=== PATIENT | male | born 1980 | race Caucasian/White ===

== ENCOUNTER 2019-07-12 08:39 | Emergency (ER) | payer SELFPAY ==
[2019-07-12 08:47] VITALS: BP 135/75
[2019-07-12] MEDS ORDERED: DEXAMETHASONE SOD PHOS INJ 10 MG/1 ML VIAL IM ONE (09:08)
--- NOTE | 2019-07-12 09:09 | ER Document Report ---
HPI - HPI Time Seen by Provider: 07/12/19 08:55 Context: Patient is a 38-year-old male who presents to the emergency department with a chief complaint of back pain. About a week ago he started to have back pain at his right lower back. 2 days ago he felt a pop in his back. He states that it hurts to lay down, sit up and he continues to have pain. Patient states that he has taken ibuprofen to help with his pain, but has had little relief. Last dose of ibuprofen was at 5:00 this morning. He took 800 mg. Denies any past medical history. Does not take any other medications on a regular basis. - CONSTITUTIONAL Constitutional: DENIES: Fever, Chills - EENT EENT: DENIES: Sore Throat, Ear Pain, Eye problems - NEURO Neurology: DENIES: Headache, Weakness, Vision blurred, Dizzinesss / Vertigo - CARDIOVASCULAR Cardiovascular: DENIES: Chest pain - RESPIRATORY Respiratory: DENIES: Trouble Breathing, Coughing - GASTROINTESTINAL Gastrointestinal: DENIES: Abdominal Pain, Nausea, Patient vomiting - URINARY Urinary: DENIES: Dysuria, Urgency, Frequency - MUSCULOSKELETAL Musculoskeletal: REPORTS: Back Pain - right lower. DENIES: Extremity pain, Neck Pain, Swelling - DERM Skin Color: Normal Skin Problems: None Past Medical History - General Information source: Patient - Social History Smoking Status: Current Every Day Smoker Family History: Reviewed & Not Pertinent Vertical Provider Document - CONSTITUTIONAL Agree With Documented VS: Yes Exam Limitations: No Limitations General Appearance: No Apparent Distress - HEENT HEENT: Atraumatic, Normocephalic, PERRLA - NECK Neck: Normal Inspection - RESPIRATORY Respiratory: Breath Sounds Normal, No Respiratory Distress - CARDIOVASCULAR Cardiovascular: Regular Rate, Regular Rhythm Pulses: Normal: Radial - MUSCULOSKELETAL/EXTREMETIES Musculoskeletal/Extremeties: FROM, Tender - Right lower back, No Edema - NEURO Level of Consciousness: Awake, Alert, Appropriate Motor/Sensory: No Motor Deficit, No Sensory Deficit - DERM Integumentary: Warm, Dry Course - Re-evaluation Re-evalutation: 07/12/19 09:06 Differential diagnosis for back pain includes muscle spasm, muscle strain, slipped disc cauda equina syndrome, vertebral fracture, vertebral tumor, epidural abscess, pyelonephritis, or AAA. Based on history and exam, the most likely etiology of the patient's back pain is musculoskeletal nature. Emergent MRI is not indicated at this time because the patient does not have new weakness, or cauda equina syndrome. Patient does not have bladder or bowel dysfunction. Patient does not have history of IV drug use, therefore, I do not suspect an epidural abscess. Patient does not have recent weight loss or night sweats, and does not have a known history of cancer. Patient will receive a dose of Decadron here in the emergency department. I will send him home with naproxen. Follow-up precautions were given. Verbal d ischarge instructions were given to the patient. They verbalized understanding. They are stable for discharge. - Vital Signs Vital signs: Temp Pulse Resp BP Pulse Ox 98.2 F 76 16 135/75 H 100 07/12/19 08:45 07/12/19 08:45 07/12/19 08:45 07/12/19 08:45 07/12/19 08:45 Discharge - Discharge Clinical Impression: Lumbago Qualifiers: Chronicity: acute Back pain laterality: right Sciatica presence: without sciatica Qualified Code(s): M54.5 - Low back pain Condition: Stable Disposition: HOME, SELF-CARE Instructions: Ice Packs ([facility]), Low Back Pain ([facility]), Muscle Strain ([facility]), Warm Packs ([facility]) Additional Instructions: You have been seen in the Emergency Department (ED) today for back pain. Your workup and exam have not shown any acute abnormalities and you are likely suffering from muscle strain or possible problems with your discs, but there is no treatment that will fix your symptoms at this time. Please take the naproxen that has been prescribed as directed. You should also purchase a local lidocaine cream such as "aspercreme with lidocaine" and use per bottle instructions to the affected area. Apply heat to the area as often as you are able. Continue to keep active and avoid prolonged periods of bed rest. Please follow up with your doctor as soon as possible regarding today's ED visit and your back pain. Return to the ED for worsening back pain, fever, weakness or numbness of either leg, or if you develop either (1) an inability to urinate or have bowel movements, or (2) loss of your ability to control your bathroom functions (if you start having "accidents"), or if you develop other new symptoms that concern you.concern you. Prescriptions: Naproxen 500 mg PO BID #60 tablet Referrals: [facility] [Provider Group] - Follow up as needed [facility] [Provider Group] - Follow up as needed
== END 2019-07-12 09:22 | disposition home or self-care (01) ==
LOC: ER 08:39
DX: M54.5 Low back pain (principal); F17.200 Nicotine dependence, unspecified, uncomplicated
CPT/HCPCS: 96372; 99283; J1100

== ENCOUNTER 2019-08-15 16:03 | Inpatient (IN) | payer SELFPAY ==
--- NOTE | 2019-08-15 17:32 | ER Document Report ---
ED Psych Disorder / Suicide - General Chief Complaint: Suicidal Ideation Stated Complaint: POSSIBLE OVERDOSE Time Seen by Provider: 08/15/19 16:42 Notes: Patient is a 38-year-old male who presents the emergency department with a chief complaint of suicidal ideation. Patient states that he wants to kill himself. He attempted to take 80 mg of Imodium around 1230 this afternoon. Patient states that he has a history of heroin abuse and he has been on Imodium to help with withdrawals. He admits to using heroin about 6 months ago. Patient has history of chronic back pain. States he had a bowel movement yesterday and it was normal. Denies any abdominal pain, chest pain, respiratory distress, or any other symptoms. Patient denies homicidal ideation. TRAVEL OUTSIDE OF THE [place] IN LAST 30 DAYS: No - Related Data Allergies/Adverse Reactions: Penicillins Allergy (Verified 07/12/19 09:05) Home Medications: Immodium. Ibuprofen Past Medical History - General Information source: Patient - Social History Smoking Status: Current Every Day Smoker Chew tobacco use (# tins/day): No Frequency of alcohol use: None Drug Abuse: Cocaine, Heroin, Marijuana Family History: Reviewed & Not Pertinent Patient has suicidal ideation: Yes Patient has homicidal ideation: No Review of Systems - Review of Systems Notes: REVIEW OF SYSTEMS: CONSTITUTIONAL : Denies recent illness. Denies recent unintentional weight loss. Denies fever, chills, or sweats. EENT: Denies eye, ear, throat, or mouth pain, discharge, or symptoms. Denies nasal or sinus congestion. CARDIOVASCULAR: Denies chest pain. RESPIRATORY: Denies shortness of breath, cough, congestion, difficulty breathing, or wheezing. GASTROINTESTINAL: Denies nausea, vomiting, and diarrhea. Denies abdominal pain. Denies constipation. GENITOURINARY: Denies difficulty urinating, burning, blood in urine, urgency or frequency. MUSCULOSKELETAL: Denies neck and back pain. Denies joint pain or swelling. SKIN: Denies rash, itchiness, or lesions HEMATOLOGIC : Denies easy bruising or bleeding. LYMPHATIC: Denies swollen, painful, enlarged glands. NEUROLOGICAL: Denies no numbness or tingling denies weakness. Denies headache. Denies altered mental status. Denies alteration in speech. PSYCHIATRIC: See HPI. All other systems reviewed and negative. Physical Exam - Vital signs Vitals: Temp Pulse Resp BP Pulse Ox 98.2 F 66 20 145/96 H 96 08/15/19 16:31 08/15/19 16:31 08/15/19 16:31 08/15/19 16:31 08/15/19 16:31 - Notes Notes: PHYSICAL EXAMINATION: GENERAL: Appears well, healthy, well-nourished, no acute distress. HEAD: Normocephalic, atraumatic. EYES: PERRL, conjunctiva normal, all extraocular movements intact, sclera nonicteric ENT: Moist mucous membranes. NECK: Supple, no noticeable swelling, redness, rash. Normal range of motion. LUNGS: Equal breath sounds bilaterally and clear to auscultation. No wheezes rales or rhonchi. CARDIOVASCULAR: S1-S2, regular rate, regular rhythm. Radial pulses 2+, normal. ABDOMEN: Normoactive bowel sounds. Soft, nontender, no guarding, no rebound tenderness, and no masses palpated. EXTREMITIES: Normal strength and range of motion, no pitting or edema. No cy anosis. NEUROLOGICAL: Moves all extremities upon command. Strength 5/5 in all extremities. PSYCH: Tearful, sad. SKIN: Warm, dry. No rash, lesions, ulcerations noted. Normal skin turgor. Course - Re-evaluation Re-evalutation: 08/15/19 17:02 Primary nurse called poison control and poison control is recommending basic labs along with a magnesium level. They also recommend ICU admission. 08/15/19 18:01 Patient's hematology is unremarkable. Chemistries are also unremarkable. Liver enzymes are normal. Urinalysis is normal. I spoke with Dr. Carrillo, the lunch wagon operator. Patient will be admitted to the ICU for cardiac monitoring and monitoring for respiratory depression. 08/15/19 18:55 Toxicology shows barbiturates, cocaine, and marijuana. - Vital Signs Vital signs: Temp Pulse Resp BP Pulse Ox 98.2 F 66 12 138/90 H 97 08/15/19 16:31 08/15/19 16:31 08/15/19 18:02 08/15/19 18:02 08/15/19 18:02 - Laboratory Result Diagrams: 08/15/19 16:50 08/15/19 16:50 Laboratory results interpreted by me: 08/15/19 16:50 RBC 5.73 H - EKG Interpretation by Me Additional EKG results interpreted by me: 08/15/19 18:01 Sinus rhythm. Rate 60. WI 184; QRS 92; QT 428; QTc 428. No ST elevations or depressions noted. Discharge - Discharge Clinical Impression: Suicidal ideation Overdose Qualifiers: Encounter type: initial encounter Injury intent: intentional self-harm Qualified Code(s): T50.902A - Poisoning by unspecified drugs, medicaments and biological substances, intentional self-harm, initial encounter Condition: Stable Disposition: ADMITTED INPATIENT Admitting Provider: Gerardo (Taper/Finisher) Unit Admitted: ICU
[2019-08-15 17:36] LABS: ABSOLUTE EOSINOPHILS # (AUTO) 0.1 10^3/uL (0.0-0.6); ABSOLUTE LYMPHOCYTES (AUTO) 2.6 10^3/uL (0.5-4.7); ABSOLUTE MONOCYTES (AUTO) 0.6 10^3/uL (0.1-1.4); ABSOLUTE NEUT (AUTO) 6.5 10^3/uL (1.7-8.2); BASOPHILS % (AUTO) 0.4 % (0-2); EOSINOPHILS % (AUTO) 0.8 % (0-6); HEMATOCRIT 48.2 % (37.9-51.0); HEMOGLOBIN 16.2 g/dL (13.5-17.0); LYMPHOCYTES % (AUTO) 26.8 % (13-45); MEAN CORPUSCULAR HEMOGLOBIN 28.3 pg (27.0-33.4); MEAN CORPUSCULAR HGB CONC 33.7 g/dL (32.0-36.0); MEAN CORPUSCULAR VOLUME 84 fl (80-97); MONOCYTES % (AUTO) 6.1 % (3-13); PLATELET COUNT 229 10^3/uL (150-450); RED BLOOD COUNT 5.73 10^6/uL (4.35-5.55); SEGMENTED NEUTROPHILS % (AUTO) 65.9 % (42-78); TOTAL CELLS COUNTED % (AUTO) 100 %; WHITE BLOOD COUNT 9.9 10^3/uL (4.0-10.5)
[2019-08-15 17:43] LABS: APPEARANCE,URINE CLEAR; BILIRUBIN,URINE NEGATIVE (NEGATIVE); COLOR,URINE YELLOW; GLUCOSE, URINE NEGATIVE (NEGATIVE); KETONES,URINE NEGATIVE (NEGATIVE); LEUKOCYTE ESTERASE,URINE NEGATIVE (NEGATIVE); NITRITE,URINE NEGATIVE (NEGATIVE); PROTEIN,URINE NEGATIVE (NEGATIVE); URINE SPECIFIC GRAVITY 1.006; UROBILINOGEN,URINE NEGATIVE mg/dL (<2.0)
[2019-08-15 17:56] LABS: ALBUMIN 4.6 g/dL (3.5-5.0); ALKALINE PHOSPHATASE 78 U/L (38-126); ANION GAP 9 (5-19); ASPARTATE AMINO TRANSFERASE 19 U/L (17-59); BILIRUBIN,DIRECT 0.2 mg/dL (0.0-0.4); BILIRUBIN,TOTAL 0.6 mg/dL (0.2-1.3); BLOOD UREA NITROGEN 7 mg/dL (7-20); CALCIUM 9.7 mg/dL (8.4-10.2); CARBON DIOXIDE 29 mmol/L (22-30); CHLORIDE 102 mmol/L (98-107); GLUCOSE 84 mg/dL (75-110); POTASSIUM 3.6 mmol/L (3.6-5.0); TOTAL PROTEIN 7.8 g/dL (6.3-8.2)
[2019-08-15 18:03] LABS: URINE AMPHETAMINES SCREEN NEGATIVE; URINE BENZODIAZEPINES SCREEN NEGATIVE; URINE METHADONE SCREEN NEGATIVE; URINE PHENCYCLIDINE SCREEN NEGATIVE
[2019-08-15 18:17] LABS: URINE BARBITURATES SCREEN UNCONFIRMED POSITIVE; URINE COCAINE SCREEN UNCONFIRMED POSITIVE; URINE MARIJUANA (THC) SCREEN UNCONFIRMED POSITIVE
[2019-08-15 21:47] LABS: SALICYLATE 1.1 mg/dL (2.0-20.0)
[2019-08-15 21:58] LABS: ACETAMINOPHEN < 10 ug/mL (10-30); ALCOHOL < 10 mg/dL (NONE DETECTED)
--- NOTE | 2019-08-15 22:29 | EKG REPORT ---
SEVERITY:- ABNORMAL ECG - SINUS RHYTHM CONSIDER ANTEROSEPTAL INFARCT : Confirmed by: Linnea Liu MD 15-Aug-2019 22:29:23
--- NOTE | 2019-08-15 22:29 | EKG REPORT ---
SEVERITY:- ABNORMAL ECG - SINUS RHYTHM PROBABLE LEFT ATRIAL ABNORMALITY CONSIDER ANTEROSEPTAL INFARCT : Confirmed by: Linnea Liu MD 15-Aug-2019 22:29:26
[2019-08-16] MEDS ORDERED: ACETAMINOPHEN 325 MG TABLET PO ONE (03:00)
[2019-08-16 06:02] LABS: ABSOLUTE EOSINOPHILS # (AUTO) 0.1 10^3/uL (0.0-0.6); ABSOLUTE LYMPHOCYTES (AUTO) 2.6 10^3/uL (0.5-4.7); ABSOLUTE MONOCYTES (AUTO) 0.4 10^3/uL (0.1-1.4); ABSOLUTE NEUT (AUTO) 3.1 10^3/uL (1.7-8.2); BASOPHILS % (AUTO) 0.8 % (0-2); EOSINOPHILS % (AUTO) 2.1 % (0-6); HEMATOCRIT 45.4 % (37.9-51.0); HEMOGLOBIN 15.2 g/dL (13.5-17.0); LYMPHOCYTES % (AUTO) 41.9 % (13-45); MEAN CORPUSCULAR HEMOGLOBIN 28.1 pg (27.0-33.4); MEAN CORPUSCULAR HGB CONC 33.5 g/dL (32.0-36.0); MEAN CORPUSCULAR VOLUME 84 fl (80-97); MONOCYTES % (AUTO) 6.7 % (3-13); PLATELET COUNT 214 10^3/uL (150-450); RED BLOOD COUNT 5.41 10^6/uL (4.35-5.55); RED CELL DISTRIBUTION WIDTH 13.8 % (11.5-14.0); SEGMENTED NEUTROPHILS % (AUTO) 48.5 % (42-78); TOTAL CELLS COUNTED % (AUTO) 100 %; WHITE BLOOD COUNT 6.3 10^3/uL (4.0-10.5)
[2019-08-16 06:11] LABS: ALKALINE PHOSPHATASE 58 U/L (38-126); ANION GAP 8 (5-19); ASPARTATE AMINO TRANSFERASE 19 U/L (17-59); BILIRUBIN,DIRECT 0.2 mg/dL (0.0-0.4); BILIRUBIN,TOTAL 0.8 mg/dL (0.2-1.3); BLOOD UREA NITROGEN 10 mg/dL (7-20); CALCIUM 9.5 mg/dL (8.4-10.2); CARBON DIOXIDE 30 mmol/L (22-30); CHLORIDE 101 mmol/L (98-107); GLUCOSE 151 mg/dL (75-110); PHOSPHORUS 4.9 mg/dL (2.5-4.5); TOTAL PROTEIN 6.9 g/dL (6.3-8.2)
--- NOTE | 2019-08-16 08:47 | CRITICAL CARE ADMISSION REPORT ---
HPI Date:: 08/15/19 Reason for ICU Reason:: intentional overdose. suicidal ideation HPI: Mr. Coleman is a pleasant 38yr old M with PMHx of heroin addiction, polysubtance use and depression who was brought in to the ED after he admitted to his brother that he had taken 80mg of Immodum with suicidal intent. Pt states that he started taking immodium to attempt to stop using heroin and when he recently tried to wean himself off the Immodium, he began feeling withdrawal symptoms. He reported that he was initially on 10mg daily and when he weaned to 5mg he had symptoms of withdrawal, so he has been taking 7mg daily. He states that he decided to take 80mg today with the intention of overdose. ED provider states she spoke with poison control with recommendations to admit to ICU for continuous cardiac and respiratory monitoring. Admits to suicidal attempts in the remote past, but nothing recently. Currently denies SI/HI. Reported mild headache that was treated with 650mg Acetaminophen with improvement. - Diagnosis/Plan (1) Overdose Qualifiers: Encounter type: initial encounter Injury intent: intentional self-harm Qualified Code(s): T50.902A - Poisoning by unspecified drugs, medicaments and biological substances, intentional self-harm, initial encounter Is this a current diagnosis for this admission?: Yes (2) Suicidal ideation Is this a current diagnosis for this admission?: Yes (3) Polysubstance (excluding opioids) dependence Is this a current diagnosis for this admission?: Yes - . Plan Summary: Pulm: * continuous pulse ox monitoring - concerns for respiratory depression with immodium OD * supplement O2 as needed - maintain low threshold for intubation if needed * elevate HOB cardiac: * maintain tele monitoring * Q2h vitals * Q4 EKG x6 to monitor QTc and assess for acute changes * Consider echo with history of polysubstance abuse to obtain baseline Neuro: * reported overdose with suicidal intent - suicidal precautions, sitter at bedside, psych consult requested, consider rehab services if accepting * c/o headache that resolved with tylenol * hx of polysubstance abuse with tox screen positive for cocaine, marijuana and barbiuates Renal: * no acute concerns * monitor I&O, trend renal indices, replace lytes PRN GI: * Regular diet * no indication for GI ppx Heme/onc: * no acute concerns * trend hgb/hct - transfuse for hgb <7.0 * lovenox for DVT ppx ID: * WBC and vitals stable - monitor for needed abx Past Medical History Past Medical History: as per HPI Psychiatric Medical History: Reports: Depression - chemical dependency Social/Family History - Social History Smoking Status: Current Every Day Smoker Drugs: Cocaine, Heroin, Marijuana - Medication/Allergies Home Medications: No Home Medications 08/15/19 Allergies/Adverse Reactions: Penicillins Allergy (Verified 07/12/19 09:05) Review of Systems Constitutional: PRESENT: headache(s) Nose, Mouth, and Throat: PRESENT: headache(s) Cardiovascular: ABSENT: chest pain, dyspnea on exertion, palpitations Respiratory: ABSENT: cough Gastrointestinal: ABSENT: abdominal pain, constipation, diarrhea, nausea, vomiting Neurological: ABSENT: confusion, dizziness, numbness, tingling Psychiatric: PRESENT: depression, suicidal ideation. ABSENT: homidical ideation Physical Exam Vital Signs: Temp Pulse Resp BP Pulse Ox 97.8 F 60 11 L 114/75 95 08/16/19 08:00 08/16/19 08:00 08/16/19 08:00 08/16/19 08:00 08/16/19 08:00 Intake & Output 08/15/19 08/16/19 08/17/19 06:59 06:59 06:59 Intake Total 222 Output Total 0 Balance 222 0 Weight 59.8 kg Weight/Height Weight 59.8 kg Height 6 ft General appearance: PRESENT: no acute distress, thin, well-developed, well- nourished Head exam: PRESENT: atraumatic, normocephalic Eye exam: PRESENT: conjunctiva pink, EOMI, PERRLA Ear exam: PRESENT: normal external ear exam Mouth exam: PRESENT: moist Teeth exam: PRESENT: poor dentation Neck exam: ABSENT: tracheal deviation Respiratory exam: PRESENT: clear to auscultation rodrick, unlabored. ABSENT: wheezes Cardiovascular exam: PRESENT: RRR, +S1, +S2 Pulses: PRESENT: +2 pedal pulses bilateral GI/Abdominal exam: PRESENT: normal bowel sounds, soft. ABSENT: distended, tenderness Extremities exam: ABSENT: tenderness Neurological exam: PRESENT: alert, awake, oriented to person, oriented to place, oriented to time, oriented to situation, CN II-XII grossly intact, normal gait Psychiatric exam: PRESENT: appropriate affect, suicidal ideation Skin exam: PRESENT: dry, other - multiple tattoos in various locations Laboratory/Radiographs Laboratory Results: 08/16/19 05:30 08/16/19 05:30 08/15/19 08/15/19 08/15/19 16:50 16:50 16:50 WBC 9.9 RBC 5.73 H Hgb 16.2 Hct 48.2 MCV 84 MCH 28.3 MCHC 33.7 RDW 14.0 Plt Count 229 Seg Neutrophils % 65.9 Sodium 140.4 Potassium 3.6 Chloride 102 Carbon Dioxide 29 Anion Gap 9 BUN 7 Creatinine 0.78 Est GFR ( Amer) > 60 Glucose 84 Calcium 9.7 Phosphorus Magnesium 2.0 Total Bilirubin 0.6 AST 19 Alkaline Phosphatase 78 Total Protein 7.8 Albumin 4.6 Urine Color YELLOW Urine Appearance CLEAR Urine pH 6.0 Ur Specific [place] 1.006 Urine Protein NEGATIVE Urine Glucose (UA) NEGATIVE Urine Ketones NEGATIVE Urine Blood NEGATIVE Urine Nitrite NEGATIVE Ur Leukocyte Esterase NEGATIVE Urine RBC (Auto) 1 08/16/19 08/16/19 05:30 05:30 WBC 6.3 RBC 5.41 Hgb 15.2 Hct 45.4 MCV 84 MCH 28.1 MCHC 33.5 RDW 13.8 Plt Count 214 Seg Neutrophils % 48.5 Sodium 139.3 Potassium 4.0 Chloride 101 Carbon Dioxide 30 Anion Gap 8 BUN 10 Creatinine 0.84 Est GFR ( Amer) > 60 Glucose 151 H Calcium 9.5 Phosphorus 4.9 H Magnesium 2.0 Total Bilirubin 0.8 AST 19 Alkaline Phosphatase 58 Total Protein 6.9 Albumin 4.0 Urine Color Urine Appearance Urine pH Ur Specific [place] Urine Protein Urine Glucose (UA) Urine Ketones Urine Blood Urine Nitrite Ur Leukocyte Esterase Urine RBC (Auto) 08/15/19 15:49 Creatine Kinase 80 Critical Time Critical Time (minutes): 30 -: The care of a critically ill patient is dynamic. This note represents a static moment in the admission process. orders and treatments may be given simulataneously and urgentl, and time is not technical sales representative of the treatment process. This patient requires Critical Care secondary to life threating organ or limb dysfunction. Without the need for Critical Care services, the patient is at r isk for increasid mortality and morbidity.
[2019-08-16] MEDS ORDERED: ENOXAPARIN SODIUM INJ 30 MG/0.3 ML DISP.SYRIN SUBCUT SCH (10:00)
--- NOTE | 2019-08-16 13:59 | Progress Note ---
Provider Note Provider Note: I personally saw and evaluated the patient in the ICU after he was admitted by Rachelle Juarez NP I reviewed the case care plan and exam findings and I am in agreement In addition to above I saw the patient because of the concern for electro physiologic changes of the heart based on the Imodium he took. In discussion with me he did not take as much as had been originally reported and has been on it chronically to suppress his heroin addiction tendencies. He denies any seizure history, he has no bloating, no abdominal discomfort, no constipation, no shortness of breath and no chest pain. Since his initial evaluation the emergency room he has had no hemodynamic instability. All EKGs have shown a normal QTC and normal QRS. He has exhibited no signs of withdrawal. His lungs are clear heart regular rate and rhythm abdomen is soft and nontender. Labs are normal. He does admit that he wanted to attempt to harm himself in a suicide attempt. He now feels that this was the wrong choice. Has had multiple episodes of suicide attempts. Patient was admitted to the ICU because of the concern for electrophysiologic changes related to loperamide. Given his non-labile status I have cleared him for transfer to psychiatry. He has using cocaine recently and other multiple substances. Withdrawal from these substances will also need to be considered. Please see the H&P by Rachelle Juarez for further details. Total time spent in evaluation of safety, electro physiologic monitoring and EKG monitoring in addition to multidisciplinary rounds, 38 minutes
--- NOTE | 2019-08-16 14:32 | EKG REPORT ---
SEVERITY:- NORMAL ECG - SINUS BRADYCARDIA : Confirmed by: Linnea Liu MD 16-Aug-2019 14:31:34
--- NOTE | 2019-08-16 14:32 | EKG REPORT ---
SEVERITY:- NORMAL ECG - SINUS RHYTHM CONSIDER ANTEROSEPTAL INFARCT : Confirmed by: Linnea Liu MD 16-Aug-2019 14:31:23
--- NOTE | 2019-08-16 14:33 | EKG REPORT ---
SEVERITY:- OTHERWISE NORMAL ECG - SINUS RHYTHM BORDERLINE RIGHT AXIS DEVIATION : Confirmed by: Linnea Liu MD 16-Aug-2019 14:31:53
--- NOTE | 2019-08-16 16:41 | PSYCHOLOGICAL NOTE ---
Psych Note - Psych Note Date seen by psych provider: 08/16/19 Time seen by psych provider: 14:45 Psych Note: Reason for consult: SI & OD Patient states a history of senior care opiate abuse. Patient states he has received treatment at 12 rehabs and a couple of detoxes. Patient reports injection of 30-40 Imodium pills with the intent to commit suicide. Patient reports a history of Imodium use to not withdraw after opioid use. Patient stated he was glad his suicide attempt was not completed, however patient verbalized some indifference with being alive. Patient states he informed his a week ago about his plans to commit suicide. Patient states he waited so he could enjoy 5 awesome days with my kids. Patient expressed a desire to go inpatient. When asked what would make this time different than the prior 12 rehabs and couple of detoxes, patient responded, I dont know. Patient has not engaged in outpatient mental health services for therapy and medication management. Patient was agreeable to medication management and outpatient therapy services. Patient reports the only significant mental health history is his grandmothers sister had a Bipolar Depression diagnosis. Patient is alert and oriented to person, place, time and circumstance. Mood eurythmic with congruent affect as observed by laughing, smiling, and engaging with clinician. Patient currently endorses passive suicidal ideation. Patient denies homicidal ideation. Delusions are absent and behavior is congruent with an intact reality based presentation (i.e. organized and linear thought processes). Patient denies auditory and visual hallucinations. There is no observed behavior that suggests patient is responding to internal stimuli. Eye contact is good. Conversational speech is within normal rate, tone, and prosody. Intellectual ability appears to be within average range. Attention and concentration are good. Insight, judgment, and impulse control are poor. DSM Diagnosis: Substance Use Disorder, Severe Possible Cluster B Traits Medication recommendations per [facility] contracted psychiatrist Dr. Izabel LOBATO is as follows: None Impression/Plan: Patient is cleared from acute psychiatric services. Patient does not meet IVC criteria per [place] GS 122C. Medication recommendations have been provided. Patient currently endorses passive suicidal ideation. Patient denies homicidal ideation. Patient denies auditory and visual hallucinations. There is no observed behavior that suggests patient is responding to internal stimuli. Plan is for patient to voluntarily follow up at [facility] for further treatment. Dr. Gonsales was consulted on the care and management of this patient; attending physician is in agreement with recommendations and disposition.
[2019-08-16] MEDS ORDERED: NICOTINE 21 MG/24 HR PATCH.TD24 TD PRN (19:30)
[2019-08-17 04:22] LABS: ABSOLUTE EOSINOPHILS # (AUTO) 0.1 10^3/uL (0.0-0.6); ABSOLUTE LYMPHOCYTES (AUTO) 2.7 10^3/uL (0.5-4.7); ABSOLUTE MONOCYTES (AUTO) 0.4 10^3/uL (0.1-1.4); ABSOLUTE NEUT (AUTO) 3.3 10^3/uL (1.7-8.2); BASOPHILS % (AUTO) 0.5 % (0-2); EOSINOPHILS % (AUTO) 1.7 % (0-6); HEMATOCRIT 45.8 % (37.9-51.0); HEMOGLOBIN 15.3 g/dL (13.5-17.0); LYMPHOCYTES % (AUTO) 41.3 % (13-45); MEAN CORPUSCULAR HGB CONC 33.5 g/dL (32.0-36.0); MEAN CORPUSCULAR VOLUME 84 fl (80-97); MONOCYTES % (AUTO) 6.4 % (3-13); PLATELET COUNT 220 10^3/uL (150-450); RED BLOOD COUNT 5.47 10^6/uL (4.35-5.55); RED CELL DISTRIBUTION WIDTH 13.8 % (11.5-14.0); SEGMENTED NEUTROPHILS % (AUTO) 50.1 % (42-78); TOTAL CELLS COUNTED % (AUTO) 100 %; WHITE BLOOD COUNT 6.6 10^3/uL (4.0-10.5)
[2019-08-17 04:35] LABS: ANION GAP 6 (5-19); BLOOD UREA NITROGEN 12 mg/dL (7-20); CALCIUM 9.1 mg/dL (8.4-10.2); CARBON DIOXIDE 31 mmol/L (22-30); CHLORIDE 103 mmol/L (98-107); GLUCOSE 83 mg/dL (75-110); PHOSPHORUS 4.8 mg/dL (2.5-4.5); POTASSIUM 4.2 mmol/L (3.6-5.0)
[2019-08-17] MEDS ORDERED: INFLUENZA QUAD (6MOS+) 2019-20 VAC 0.5 ML SYR IM ONE (08:49)
[2019-08-17] MEDS ORDERED: ENOXAPARIN SODIUM INJ 40 MG/0.4 ML DISP.SYRIN SUBCUT SCH (10:00)
--- NOTE | 2019-08-17 11:22 | PDOC CRITICAL CARE PROG REPORT ---
General Date:: 08/17/19 ICU Day:: 2 Ventilator Day:: 0 Hospital Day:: 2 Events in the past 12 to 24 Hours:: The patient was seen and evaluated by psychiatry and cleared without need for involuntary committal. He has remained hemodynamically stable and psychiatrically non-labile. Sarted on nicotine patch yesterday Review of systems relevant to events:: No chest pain, shortness of breath, visual hallucinations, no aggressive behavior. No abdominal pain, bloating. Has had no bowel movement. Does feel some mild withdraw but not significant Reason for ICU Addmission:: intentional overdose. suicidal ideation - Medications: Medications reviewed and adjusted accordingly: Yes Physical Exam Vital Signs: Temp Pulse Resp BP Pulse Ox 98.2 F 59 L 19 108/72 95 08/17/19 06:00 08/16/19 20:00 08/17/19 06:32 08/17/19 06:32 08/17/19 06:32 Intake & Output 08/16/19 08/17/19 08/18/19 06:59 06:59 06:59 Intake Total 222 Output Total 700 Balance 222 -700 Weight 59.8 kg 60 kg Weight/Height Weight 60 kg Height 6 ft General appearance: PRESENT: no acute distress, cooperative, well-developed, well-nourished Exam: Pleasant, nontoxic young appearing 38-year-old male no acute distress awake alert oriented x3 Head exam: PRESENT: atraumatic, normocephalic Eye exam: PRESENT: conjunctiva pink, EOMI, PERRLA. ABSENT: conjunctival injection, scleral icterus Ear exam: PRESENT: normal external ear exam Mouth exam: PRESENT: moist, neck supple Teeth exam: PRESENT: poor dentation Throat exam: ABSENT: post pharyngeal erythema, tonsillar erythema, tonsillar exudate, tonsillogmegaly Neck exam: ABSENT: carotid bruit, JVD, lymphadenopathy, thyromegaly Respiratory exam: PRESENT: clear to auscultation rodrick, unlabored. ABSENT: accessory muscle use, rales, rhonchi, tachypnea, wheezes Cardiovascular exam: PRESENT: RRR, +S1, +S2. ABSENT: tachycardia Pulses: PRESENT: normal dorsalis pedis pul GI/Abdominal exam: PRESENT: normal bowel sounds, soft. ABSENT: ascites, distended, firm, guarding, mass, organolmegaly, rebound, rigid, tenderness Rectal exam: PRESENT: deferred Extremities exam: ABSENT: pedal edema, tenderness Musculoskeletal exam: PRESENT: normal inspection. ABSENT: deformity, dislocation Neurological exam: PRESENT: alert, awake, oriented to person, oriented to place, oriented to time, oriented to situation, CN II-XII grossly intact, other - No tremor. ABSENT: motor sensory deficit, aphasic Psychiatric exam: PRESENT: appropriate affect, normal mood. ABSENT: agitated, homicidal ideation, suicidal ideation Focused psych exam: ABSENT: pressured speech, psychomotor agitation, restlessness Skin exam: PRESENT: dry, intact, warm. ABSENT: cyanosis, mottled, rash Tubes/Lines: ABSENT: Endotracheal Tube, Chest Tube, Central Line, Arterial Catheter, Dialysis catheter, Peg Tube, Nasogastic Tube, Other Laboratory/Radiographs Laboratory Results: 08/17/19 03:54 08/17/19 03:54 08/17/19 08/17/19 03:54 03:54 WBC 6.6 RBC 5.47 Hgb 15.3 Hct 45.8 MCV 84 MCH 28.0 MCHC 33.5 RDW 13.8 Plt Count 220 Seg Neutrophils % 50.1 Sodium 140.1 Potassium 4.2 Chloride 103 Carbon Dioxide 31 H Anion Gap 6 BUN 12 Creatinine 0.84 Est GFR ( Amer) > 60 Glucose 83 Calcium 9.1 Phosphorus 4.8 H Magnesium 2.1 08/15/19 15:49 Creatine Kinase 80 EKG: QTC acceptable at 420 ms, QRS @ 76 All labs, radiographs, diagnostic studies and EKGs were personally reviewed: Yes In addition, reports of radiographic and diagnostic studies were read: Yes Assessment and Plan - Diagnosis (1) Drug overdose, intentional Is this a current diagnosis for this admission?: Yes (2) Suicide attempt by drug overdose Is this a current diagnosis for this admission?: Yes (3) Suicide attempt by drug overdose Is this a current diagnosis for this admission?: Yes (4) Polysubstance (including opioids) dependence w/o physiol dependence Is this a current diagnosis for this admission?: Yes (5) Cocaine abuse Is this a current diagnosis for this admission?: Yes (6) Tobacco abuse Is this a current diagnosis for this admission?: Yes (7) Tobacco abuse counseling Is this a current diagnosis for this admission?: Yes Plan Summary: Patient's QTC on EKG today shows no changes and acceptable He denies suicidal intent today. He agrees to outpatient rehabilitation Laboratory results showed no significant abnormalities Patient has had no hemodynamic or electrophysiologic instability He is stable for discharge to inpatient rehabilitation at [facility]. Critical Time Critical Time (minutes): 0 - [id number] Level of Care: MEDICAL Anticipated discharge: Other - [facility] inpatient rehab Within: Other - Today -: 1. The care of a critical patient is a dynamic process. This note is a outside energy [employer] synopsis but static in nature. The timeframe for treatments given in order is not necessary the actual time these treatments may have been done. 2. This patient required critical care secondary to ongoing requirements for therapy not offered or safe outside the critical care environment. He is now stable for discharge to a lower level of care. 3. Multidisciplinary rounds completed. 4. ABCDE bundle addressed.
--- NOTE | 2019-08-17 11:42 | PDOC DISCHARGE SUMMARY ---
Impression - Admit/DC Date/PCP Admission Date/Primary Care Provider: 08/15/19 18:10 Discharge Date: 08/17/19 - Discharge Diagnosis (1) Drug overdose, intentional Is this a current diagnosis for this admission?: Yes (2) Suicide attempt by drug overdose Is this a current diagnosis for this admission?: Yes (3) Suicide attempt by drug overdose Is this a current diagnosis for this admission?: Yes (4) Polysubstance (including opioids) dependence w/o physiol dependence Is this a current diagnosis for this admission?: Yes (5) Cocaine abuse Is this a current diagnosis for this admission?: Yes (6) Tobacco abuse Is this a current diagnosis for this admission?: Yes (7) Tobacco abuse counseling Is this a current diagnosis for this admission?: Yes - Assessment Summary: Admitted for intentional loperamide overdose. Initial amount appeared to be overstated compared to the actual amount patient took. He was admitted to the ICU for hemodynamic and electrophysiologic monitoring. Initially endorsing a suicide attempt he rescinded his suicidal ideation. He was not nor did he display any homicidal tendencies He remained stable throughout his ICU course. His QT and QRS intervals were normal both on admission and at discharge. Although he felt subjective early withdrawal symptoms he had no clinical evidence for withdrawal at time of discharge. He was discharged to [facility] directly from the ICU after psychiatry evaluated him and felt him to be at no risk for suicide attempt. - Additional Information Resuscitation Status: Full Code Home Medications: No Home Medications 08/15/19 History of Present Illiness History of Present Illness: Mr. Coleman is a pleasant 38yr old M with PMHx of heroin addiction, polysubtance use and depression who was brought in to the ED after he admitted to his brother that he had taken 80mg of Immodum with suicidal intent. Pt states that he started taking immodium to attempt to stop using heroin and when he recently tried to wean himself off the Immodium, he began feeling withdrawal symptoms. He reported that he was initially on 10mg daily and when he weaned to 5mg he had symptoms of withdrawal, so he has been taking 7mg daily. He states that he decided to take 80mg today with the intention of overdose. ED provider states she spoke with poison control with recommendations to admit to ICU for continuous cardiac and respiratory monitoring. Admits to suicidal attempts in the remote past, but nothing recently. Currently denies SI/HI. Reported mild headache that was treated with 650mg Acetaminophen with improvement. Hospital Course Hospital Course: Admitted for intentional loperamide overdose. Initial amount appeared to be overstated compared to the actual amount patient took. He was admitted to the ICU for hemodynamic and electrophysiologic monitoring. Initially endorsing a suicide attempt he rescinded his suicidal ideation. He was not nor did he display any homicidal tendencies He remained stable throughout his ICU course. His QT and QRS intervals were normal both on admission and at discharge. Although he felt subjective early withdrawal symptoms he had no clinical evidence for withdrawal at time of discharge. He was discharged to [facility] directly from the ICU after psychiatry evaluated him and felt him to be at no risk for suicide attempt Physical Exam Vital Signs: Temp Pulse Resp BP Pulse Ox 97.7 F 62 19 116/61 96 08/17/19 08:00 08/17/19 10:00 08/17/19 11:00 08/17/19 10:32 08/17/19 11:00 Intake & Output 08/16/19 08/17/19 08/18/19 06:59 06:59 06:59 Intake Total 222 Output Total 700 0 Balance 222 -700 0 Weight 59.8 kg 60 kg Exam: Please see today's progress note Results Laboratory Results: WBC 6.6 10^3/uL (4.0-10.5) 08/17/19 03:54 RBC 5.47 10^6/uL (4.35-5.55) 08/17/19 03:54 Hgb 15.3 g/dL (13.5-17.0) 08/17/19 03:54 Hct 45.8 % (37.9-51.0) 08/17/19 03:54 MCV 84 fl (80-97) 08/17/19 03:54 MCH 28.0 pg (27.0-33.4) 08/17/19 03:54 MCHC 33.5 g/dL (32.0-36.0) 08/17/19 03:54 RDW 13.8 % (11.5-14.0) 08/17/19 03:54 Plt Count 220 10^3/uL (150-450) 08/17/19 03:54 Lymph % (Auto) 41.3 % (13-45) 08/17/19 03:54 [place] % (Auto) 6.4 % (3-13) 08/17/19 03:54 Eos % (Auto) 1.7 % (0-6) 08/17/19 03:54 Baso % (Auto) 0.5 % (0-2) 08/17/19 03:54 Absolute Neuts (auto) 3.3 10^3/uL (1.7-8.2) 08/17/19 03:54 Absolute Lymphs (auto) 2.7 10^3/uL (0.5-4.7) 08/17/19 03:54 Absolute Monos (auto) 0.4 10^3/uL (0.1-1.4) 08/17/19 03:54 Absolute Eos (auto) 0.1 10^3/uL (0.0-0.6) 08/17/19 03:54 Absolute Basos (auto) 0.0 10^3/uL (0.0-0.2) 08/17/19 03:54 Seg Neutrophils % 50.1 % (42-78) 08/17/19 03:54 Sodium 140.1 mmol/L (137-145) 08/17/19 03:54 Potassium 4.2 mmol/L (3.6-5.0) 08/17/19 03:54 Chloride 103 mmol/L (98-107) 08/17/19 03:54 Carbon Dioxide 31 mmol/L (22-30) H 08/17/19 03:54 Anion Gap 6 (5-19) 08/17/19 03:54 BUN 12 mg/dL (7-20) 08/17/19 03:54 Creatinine 0.84 mg/dL (0.52-1.25) 08/17/19 03:54 Est GFR ( Amer) > 60 (>60) 08/17/19 03:54 Est GFR (MDRD) Non-Af > 60 (>60) 08/17/19 03:54 Glucose 83 mg/dL (75-110) 08/17/19 03:54 Calcium 9.1 mg/dL (8.4-10.2) 08/17/19 03:54 Phosphorus 4.8 mg/dL (2.5-4.5) H 08/17/19 03:54 Magnesium 2.1 mg/dL (1.6-2.3) 08/17/19 03:54 Total Bilirubin 0.8 mg/dL (0.2-1.3) 08/16/19 05:30 Direct Bilirubin 0.2 mg/dL (0.0-0.4) 08/16/19 05:30 Neonat Total Bilirubin Not Reportable 08/16/19 05:30 Neonat Direct Bilirubin Not Reportable 08/16/19 05:30 Neonat Indirect Bili Not Reportable 08/16/19 05:30 AST 19 U/L (17-59) 08/16/19 05:30 ALT 19 U/L (<50) 08/16/19 05:30 Alkaline Phosphatase 58 U/L (38-126) 08/16/19 05:30 Creatine Kinase 80 U/L (55-170) 08/15/19 15:49 Total Protein 6.9 g/dL (6.3-8.2) 08/16/19 05:30 Albumin 4.0 g/dL (3.5-5.0) 08/16/19 05:30 Urine Color YELLOW 08/15/19 16:50 Urine Appearance CLEAR 08/15/19 16:50 Urine pH 6.0 (5.0-9.0) 08/15/19 16:50 Ur Specific [place] 1.006 08/15/19 16:50 Urine Protein NEGATIVE mg/dL (NEGATIVE) 08/15/19 16:50 Urine Glucose (UA) NEGATIVE mg/dL (NEGATIVE) 08/15/19 16:50 Urine Ketones NEGATIVE mg/dL (NEGATIVE) 08/15/19 16:50 Urine Blood NEGATIVE (NEGATIVE) 08/15/19 16:50 Urine Nitrite NEGATIVE (NEGATIVE) 08/15/19 16:50 Urine Bilirubin NEGATIVE (NEGATIVE) 08/15/19 16:50 Urine Urobilinogen NEGATIVE mg/dL (<2.0) 08/15/19 16:50 Ur Leukocyte Esterase NEGATIVE (NEGATIVE) 08/15/19 16:50 Urine RBC (Auto) 1 /HPF 08/15/19 16:50 Urine Mucus (Auto) RARE /LPF 08/15/19 16:50 Urine Ascorbic Acid NEGATIVE (NEGATIVE) 08/15/19 16:50 Salicylates 1.1 mg/dL (2.0-20.0) L 08/15/19 16:50 Urine Opiates Screen NEGATIVE 08/15/19 16:50 Urine Methadone Screen NEGATIVE 08/15/19 16:50 Acetaminophen < 10 ug/mL (10-30) L 08/15/19 16:50 Ur Barbiturates Screen UNCONFIRMED POSITIVE 08/15/19 16:50 Ur Phencyclidine Scrn NEGATIVE 08/15/19 16:50 Ur Amphetamines Screen NEGATIVE 08/15/19 16:50 U Benzodiazepines Scrn NEGATIVE 08/15/19 16:50 Urine Cocaine Screen UNCONFIRMED POSITIVE 08/15/19 16:50 U Marijuana (THC) Screen UNCONFIRMED POSITIVE 08/15/19 16:50 Serum Alcohol < 10 mg/dL (NONE DETECTED) 08/15/19 16:50 EKG Comments: See progress note Plan Health Concerns: Constipation Suicidal ideation Withdrawl Plan of Treatment: Discharge to inpatient rehabilitation at [facility] Critical Time: 40 Level of Care: MEDICAL - Suitable for discharge Stroke Is this a Stroke Patient?: No Acute Heart Failure - Is this a Heart Failure Patient?: No
--- NOTE | 2019-08-17 11:45 | EKG REPORT ---
SEVERITY:- ABNORMAL ECG - SINUS RHYTHM CONSIDER ANTEROSEPTAL INFARCT : Confirmed by: Linnea Liu MD 17-Aug-2019 11:45:20
[2019-08-17 13:02] VITALS: BP 107/65
== END 2019-08-17 13:47 | DRG 918 ==
LOC: ER 16:03 → EH 18:10 → ICU 08-16 04:25
PROVIDERS: ADMIT Internal Medicine Critical Care Medicine; ATTEND Internal Medicine Critical Care Medicine
DX: T40.5X2A Poisoning by cocaine, intentional self-harm, initial encounter (principal); F19.20 Other psychoactive substance dependence, uncomplicated; T40.7X2A Poisoning by cannabis (derivatives), intentional self-harm, initial encounter; T42.3X2A Poisoning by barbiturates, intentional self-harm, initial encounter; R51 Headache; F32.9 Major depressive disorder, single episode, unspecified; F11.10 Opioid abuse, uncomplicated; F17.210 Nicotine dependence, cigarettes, uncomplicated; Y92.89 Other specified places as the place of occurrence of the external cause
CPT/HCPCS: 36415; 80048; 80053; 80307; 81001; 82550; 83735; 84100; 85025; 93005; 93010; 99285; 99291